=== PATIENT | male | born 1955 | race Caucasian/White ===

== ENCOUNTER 2020-09-30 06:38 | Day surgery (SDC) | payer BC ==
[2020-09-30] MEDS ORDERED: Propofol 200 MG/20 ML SDV IV ONE (06:39)
[2020-09-30] MEDS ORDERED: Midazolam 1 MG/ML 2 ML SDV IV ONE (06:39)
[2020-09-30] MEDS ORDERED: Lactated Ringers 1,000 ML IV SCH (06:45)
[2020-09-30] MEDS ORDERED: Sodium Chloride 0.9% 10 ML Syringe FLUSH PRN (06:45)
--- NOTE | 2020-09-30 08:07 | PCM.HP.2 ---
H&P History of Present Illness - General Date of Service: 09/30/20 Admit Problem/Dx: Admission Diagnosis/Problem Admission Diagnosis/Problem Colonoscopy Source of Information: Patient - History of Present Illness Initial Comments - Free Text/Narative: Pt presents for c scope. He is without complaints. Denies any change in bowel habits. Negative family hx - Related Data Allergies/Adverse Reactions: Allergies Allergy/AdvReac Type Severity Reaction Status Date / Time No Known Allergies Allergy Verified 09/30/20 07:00 Home Medications: Home Meds Aspirin [Halfprin] 81 mg PO DAILY 09/29/20 [History] Clopidogrel [Plavix] 75 mg PO DAILY 09/29/20 [History] Fluticasone/Vilanterol [Breo Ellipta 100-25 MCG Inhalation Kit] 1 each IH DAILY 09/29/20 [History] Metoprolol Succinate [Toprol Xl] 25 mg PO DAILY 09/29/20 [History] Multivitamin with Minerals [Multiple Vitamin] 1 tab PO DAILY 09/29/20 [History] Nitroglycerin [Nitrostat] 0.4 mg SL ASDIRECTED PRN 09/29/20 [History] atorvaSTATin Calcium [Lipitor] 40 mg PO DAILY 09/29/20 [History] Past Medical History Cardiovascular History: Reports: CAD, PVD Other Cardiovascular History: NSTEMI, CAROTID STENOSIS, RENAL ARTERY STENOSIS - Past Surgical History Cardiovascular Surgical History: Reports: Coronary Artery Stent Other Cardiovascular Surgeries/Procedures: CARDIAC CATHETERIZATION, ANGIOPLASTY, STENT IN RIGHT EXTERNAL ILIAC ARTERY GI Surgical History: Reports: Colonoscopy Social & Family History - Tobacco Use Tobacco Use Status *Q: Current Every Day Tobacco User Years of Tobacco use: 40 Packs/Tins Daily: 1 - Caffeine Use Caffeine Use: Reports: Coffee - Recreational Drug Use Recreational Drug Use: Yes Recreational Drug Type: Reports: Marijuana/Hashish Recreational Drug Use Frequency: Rarely H&P Review of Systems - Review of Systems: Review Of Systems: See Below General: Reports: No Symptoms HEENT: Reports: No Symptoms Pulmonary: Reports: No Symptoms Cardiovascular: Reports: No Symptoms Gastrointestinal: Reports: No Symptoms Exam - Exam Exam: See Below - Vital Signs Vital Signs: Last Vital Signs Temp 98.2 F 09/30/20 06:45 Pulse 80 09/30/20 06:45 Resp 16 09/30/20 06:45 BP 117/81 09/30/20 06:45 Pulse Ox 100 09/30/20 06:45 - Exam General: Alert, Oriented, Cooperative Lungs: Clear to Auscultation, Normal Respiratory Effort Cardiovascular: Regular Rate, Regular Rhythm GI/Abdominal Exam: Normal Bowel Sounds, Soft, Non-Tender Sepsis Event Note - Focused Exam Vital Signs: Vital Signs Temp Pulse Resp BP Pulse Ox 09/30/20 06:45 98.2 F 80 16 117/81 100 *Q Meaningful Use (ADM) - VTE *Q VTE Pharmacological Contraindications *Q: Patient Scheduled Surgery - Problem List (1) Colon cancer screening SNOMED Code(s): 736190852, [id number] ICD Code: Z12.11 - ENCOUNTER FOR SCREENING FOR MALIGNANT NEOPLASM OF COLON Status: Acute Current Visit: Yes Problem List Initiated/Reviewed/Updated: Yes Orders Last 24hrs: Active Orders 24 hr Category Date Time Status Patient Status [ADT] Routine ADT 09/30/20 06:45 Active Patient to Empty Bladder [RC] ASDIRECTED Care 09/30/20 06:45 Active Verify Patient Consent Obtain [RC] ASDIRECTED Care 09/30/20 06:45 Active Nothing Per Oral Diet [DIET] Diet 09/30/20 Breakfast Ordered Lactated Ringers [Ringers, Lactated] 1,000 ml Med 09/30/20 06:45 Active IV ASDIRECTED Sodium Chloride 0.9% [Saline Flush] Med 09/30/20 06:45 Active 10 ml FLUSH ASDIRECTED PRN Peripheral IV Insertion Adult [OM.PC] Routine Oth 09/30/20 06:45 Ordered Resuscitation Status Routine Resus Stat 09/29/20 10:53 Ordered Medication Orders Lactated Ringer's (Ringers, Lactated) 1,000 mls @ 125 mls/hr IV ASDIRECTED [facility] Last Admin: 09/30/20 07:12 Dose: 125 mls/hr Documented by: RANCHO Sodium Chloride (Saline Flush) 10 ml FLUSH ASDIRECTED PRN PRN Reason: Keep Vein Open Assessment/Plan Comment:: For c scope. Risks explained to the pt to include bleeding infection perforation. He asks us to proceed.
--- NOTE | 2020-09-30 09:00 | PCM.OPNOTE ---
- General Post-Op/Procedure Note Date of Surgery/Procedure: 09/30/20 Operative Procedure(s): c scope with cold forceps biopsy Findings: flat plaque like polyps ascending, splenic and distal descending colon. Pre Op Diagnosis: screening Post-Op Diagnosis: flat plaque like polyps ascending, splenic and distal descending colon. Anesthesia Technique: MAC Primary Surgeon: Boy Rocha Anesthesia Provider: Eveline Carroll Pathology: flat plaque like polyps ascending, splenic and distal descending colon. Complications: None Condition: Good Free Text/Narrative:: see dictation #[id number]
--- NOTE | 2020-09-30 11:22 | OR ---
DATE OF OPERATION: 09/30/2020 SURGEON: Boy Rocha MD PROCEDURE PERFORMED: Colonoscopy with cold forceps biopsy. PREOPERATIVE DIAGNOSIS: Need for colon cancer screening. POSTOPERATIVE DIAGNOSES: Polyp, ascending colon; polyp, proximal and distal descending colon. INDICATIONS FOR PROCEDURE: This is a 65-year-old white male who presents for screening colonoscopy. DESCRIPTION OF OPERATION: After an excellent IV sedation was administered, digital rectal exam was performed. No marked abnormality was noted. Flexible colonoscope was inserted and advanced to the cecum. The prep was excellent. There were several areas of clear liquid that we were able to aspirate. We were able to obtain an excellent view. The following findings were noted. Cecum was identified by its usual anatomic markings. The ascending colon, a small flat 4 mm area that was slightly raised and darker pink from surrounding area was noted. This was biopsied with cold biopsy forceps and sent for permanent. The remainder of the ascending colon was unremarkable. Transverse colon, unremarkable. Descending colon, at the splenic flexure, there was another area roughly about 8 mm, again similar appearance. Multiple biopsies were taken until this area was obliterated. It was not amenable to a hot loop snare biopsy. At the distal descending colon, there was another similar 4 mm raised area. Again, biopsied with cold biopsy forceps and the site was obliterated as well. Sigmoid was unremarkable. Rectum was unremarkable. The patient tolerated the procedure well, was taken to Recovery. Results will be sent to the patient via letter. /[id number] /MODL
== END 2020-09-30 09:46 | disposition home or self-care (01) ==
LOC: FB.SDS 06:38
PROVIDERS: ATTEND Surgery
DX: Z12.11 Encounter for screening for malignant neoplasm of colon (principal); D12.4 Benign neoplasm of descending colon; I25.10 Atherosclerotic heart disease of native coronary artery without angina pectoris; I73.9 Peripheral vascular disease, unspecified; I25.2 Old myocardial infarction; F17.210 Nicotine dependence, cigarettes, uncomplicated; I65.29 Occlusion and stenosis of unspecified carotid artery; Z79.82 Long term (current) use of aspirin; Z79.899 Other long term (current) drug therapy; Z95.5 Presence of coronary angioplasty implant and graft; Z79.02 Long term (current) use of antithrombotics/antiplatelets
CPT/HCPCS: 00812-QZ; J2250; J2704; J7120